=== PATIENT | female | born 1955 | race Caucasian/White ===

== ENCOUNTER 2018-07-29 07:07 | Inpatient (IN) | payer MEDICARE, BC ==
[2018-07-29] MEDS ORDERED: Ondansetron INJ* 2 MG/ML VIAL IV ONE ×2 (07:31→11:43)
[2018-07-29] MEDS ORDERED: Morphine 4 MG/ML VIAL (1 ml) 4 MG/ML VIAL IV ONE ×2 (07:31→11:43)
[2018-07-29] MEDS ORDERED: NS 0.9% 1000 ML** 1,000 ML IV ONE (07:31)
--- NOTE | 2018-07-29 07:32 | ED ---
Abdominal Pain/Female - HPI Summary HPI Summary: This pt is a 62 y/o female, accompanied by Martínez, [facility]/ o left lower abd pain since yesterday. Pt reports her pain seems to be a bit on the left upper abd area as well. She describes her abd pain as steady, constant and rates it 8 to 10 out of 10 in severity. Additionally she notes bloody stools , diarrhea describes was watery and loose stools, diaphoresis. Pt describes blood on the outside part of the stools. Denies fever, weakness, dizziness, nausea, vomiting. Pt denies any recent travel out of the country and sicks contacts. She denies recent antibiotics. Pt also denies chills, erythema of eyes, sore throat, chest pain, SOB, cough, dysuria, hematuria, myalgia, edema, rash. PMHx: lyme disease, spinal fusions x4. Her PCP is Dr. Owusu. - History of Current Complaint Chief Complaint: EDAbdPain Stated Complaint: EXTREME ABD PAIN/BLOOD IN STOOL/HOT FLASHES PER PT Hx Obtained From: Patient Onset/Duration: Lasting Days - 1, Still Present Timing: Days - 1 Severity Currently: Moderate Pain Intensity: 8 Pain Scale Used: 0-10 Numeric Location: Discrete At: LLQ Radiates: No Character: Other: - steady and constant Aggravating Factor(s): Nothing Alleviating Factor(s): Nothing Associated Signs and Symptoms: Positive: Diaphoresis, Blood in Stool, Diarrhea. Negative: Fever, Cough, Chest Pain, Dizzy, Urinary Symptoms, Nausea, Vomiting Allergies/Adverse Reactions: Allergies Allergy/AdvReac Type Severity Reaction Status Date / Time No Known Allergies Allergy Verified 07/29/18 07:40 Home Medications: Home Medications tiZANidine TAB* [Zanaflex TAB*] 4 mg PO DAILY 07/29/18 [History Confirmed ] PMH/Surg Hx/FS Hx/Imm Hx Endocrine/Hematology History: Reports: Hx Thyroid Disease - HYPOTHYROIDISM Respiratory History: Reports: Hx Sleep Apnea - NO CPAP OR BIPAP GI History: Reports: Hx Gastroesophageal Reflux Disease - ACID REFLUX Musculoskeletal History: Reports: Hx Arthritis - LOWER BACK Sensory History: Denies: Hx Contacts or Glasses, Hx Hearing Aid Opthamlomology History: Denies: Hx Contacts or Glasses - Cancer History Hx Chemotherapy: No Hx Radiation Therapy: No - Surgical History Surgical History: Yes Surgery Procedure, Year, and Place: TUBAL 1986. Cervical fusions x4 Hx Anesthesia Reactions: Yes - NEED AWAKE INTUBATION - ESOPHAGUS PROBLEMS Infectious Disease History: No Infectious Disease History: Denies: Traveled Outside the [place] in Last 30 Days - Family History Known Family History: Negative: Cardiac Disease - Social History Alcohol Use: Occasionally Substance Use Type: Reports: None Hx Tobacco Use: No Smoking Status (MU): Former Smoker Length of Time of Smoking/Using Tobacco: 22 YEARS APPROX. Have You Smoked in the Last Year: No Review of Systems Positive: Skin Diaphoresis. Negative: Fever, Chills Negative: Erythema Negative: Sore Throat Negative: Chest Pain Negative: Shortness Of Breath, Cough Gastrointestinal: Other - POS: bloody stools Positive: Abdominal Pain, Diarrhea. Negative: Vomiting, Nausea Negative: dysuria, hematuria Negative: Myalgia, Edema Negative: Rash Neurological: Other - NEGATIVE: dizziness Negative: Weakness All Other Systems Reviewed And Are Negative: Yes Physical Exam - Summary Physical Exam Summary: Constitutional: Well-developed, Well-nourished, Alert. (-) Distressed Skin: Warm, Dry HENT: Normocephalic; Atraumatic Eyes: Conjunctiva normal Neck: Musculoskeletal ROM normal neck. (-) JVD, (-) Stridor, (-) Tracheal deviation Cardio: Rhythm regular, rate normal, Heart sounds normal; Intact distal pulses; The pedal pulses are 2+ and symmetric. Radial pulses are 2+ and symmetric. (-) Murmur Pulmonary/Chest wall: Effort normal. (-) Respiratory distress, (-) Wheezes, (-) Rales Abd: Soft, (+) Exquisite LLQ tenderness. (-) Distension, (-) Guarding, (-) Rebound Musculoskeletal: (-) Edema Lymph: (-) Cervical adenopathy Neuro: Alert, Oriented x3 Psych: Mood and affect Normal Triage Information Reviewed: Yes Vital Signs On Initial Exam: Initial Vitals Temp Pulse Resp BP Pulse Ox 99.5 F 118 16 108/66 97 07/29/18 07:09 07/29/18 07:09 07/29/18 07:09 07/29/18 07:09 07/29/18 07:09 Vital Signs Reviewed: Yes Diagnostics - Vital Signs Vital Signs Temp Pulse Resp BP Pulse Ox 07/29/18 07:09 99.5 F 118 16 108/66 97 - Laboratory Result Diagrams: 07/29/18 07:35 07/29/18 07:35 Lab Statement: Any lab studies that have been ordered have been reviewed, and results considered in the medical decision making process. - CT Abdomen/Pelvis CT CT Interpretation Completed By: Radiologist Summary of CT Findings: IMPRESSION: 1. Circumferential thickening of the wall of the transverse colon most consistent with colitis. There is an outpouching along the superior wall suggestive of an ulcer or diverticulum. Recommend follow -up colonoscopy to exclude an underlying malignant lesion. 2. Small amount of free intraperitoneal fluid. 3. 2.7 CM nodular density in the right breast. Recommend follow-up mammogram for further evaluation. Dr. Hays has reviewed this report. Re-Evaluation - Re-Evaluation First Eval Re-Evaluation Time: 10:56 Comment: Reviewed lab results with pt. We are waiting for the CT results. Second Eval Re-Evaluation Time: 11:43 Change: Worse Comment: Pt reports pain. Will order pain medication. Third Eval Re-Evaluation Time: 12:19 Comment: Updated the family with results and clarified. Abdominal Pain Fem Course/Dx - Course Course Of Treatment: Pt is a 62 y/o female, accompanied by Martínez, [facility] c/o left lower abd pain since yesterday. Pt reports her pain seems to be a bit on the left upper abd area as well. She describes her abd pain as steady, constant and rates it 8 to 10 out of 10 in severity. Additionally she notes bloody stools, diarrhea describes was watery and loose stools, diaphoresis. Labs remarkable for WBC of 26.3, anion gap of 15, BUN of 28, creatinine of 1.02, glucose of 120, lactic acid of 3.1, CRP of 341, lipase < 10. Abd/pelvis CT shows 1. Circumferential thickening of the wall of the transverse colon most consistent with colitis. There is an outpouching along the superior wall suggestive of an ulcer or diverticulum. Recommend follow-up colonoscopy to exclude an underlying malignant lesion. 2. Small amount of free intraperitoneal fluid. 3. 2.7 CM nodular density in the right breast. Recommend follow-up mammogram for further evaluation. In the ED course the pt was given IV fluids, Zofran, morphine, flagyl, ciprofloxacin. Given her elevated white blood cell count, acute presentation, and significant pain I favored diverticulitis as a diagnossis. However, I cannot rule out any other etiology. Discussed the case with Dr. Curtis, hospitalist, who accepted the pt for admission. Also discussed with Dr. Huang, surgeon, who had evaluated the pt and recommends surgery and GI consult. - Diagnoses Provider Diagnoses: Colitis, Rectal bleeding - Provider Notifications Discussed Care Of Patient With: Kayla Curtis - hospitalist Time Discussed With Above Provider: 11:57 Instructed by Provider To: Other - Discussed the case with Dr. Curtis, hospitalist, who accepted the pt for admission. [12:13] Discussed with Dr. Huang , surgeon, who had evaluated the pt and recommends surgery and GI consult. - Critical Care Time Critical Care Time: 30-74 min - 45 minutes Discharge - Sign-Out/Discharge Documenting (check all that apply): Patient Departure - Admit to [facility] Patient Received Moderate/Deep Sedation with Procedure: No - Discharge Plan Condition: Stable Disposition: ADMITTED TO [facility] Referrals: Hair Owusu MD [Primary Care Provider] - - Attestation Statements Document Initiated by Scribe: Yes Documenting Scribe: Kayla Escobedo Provider For Whom Scribe is Documenting (Include Credential): Antonio Hays MD Scribe Attestation: I, Kayla Escobedo, scribed for Antonio Hays MD on 07/29/18 at 1203. Status of Scribe Document: Viewed
[2018-07-29 07:42] LABS: Hematocrit 38 % (35-47); Hemoglobin 13.1 g/dL (12.0-16.0); Mean Corpuscular HGB Conc 34 g/dL (31-36); Mean Corpuscular Hemoglobin 31 pg (27-31); Mean Corpuscular Volume 91 fL (80-97); Mean Platelet Volume 7.8 fL (7.4-10.4); Platelet Count 286 10^3/uL (150-450); Red Blood Count 4.19 10^6 /uL (3.70-4.87); Red Cell Distribution Width 14 % (10-15); White Blood Count 26.3 10^3/uL (3.5-10.8)
[2018-07-29 07:48] LABS: ABS Lymphocytes 1.4 10^3/ul (1.0-4.8); ABS Monocytes 0.7 10^3/ul (0-0.8); ABS Neutrophils 24.2 10^3/ul (1.5-7.7); Lymphocyte % 5.3 %
[2018-07-29 08:07] LABS: Urine Appearance Clear; Urine Bacteria Absent (Absent); Urine Bilirubin Negative (Negative); Urine Blood 2+ (Negative); Urine Color Amber; Urine Glucose Negative (Negative); Urine Ketones Negative (Negative); Urine Nitrite Negative (Negative); Urine Protein 2+(100 mg/dL) (Negative); Urine Red Blood Cell 3+(>10/hpf) (Absent); Urine Specific Gravity 1.033 (1.010-1.030); Urine Squamous Epithelial Cell Present (Absent); Urine Transitional Epithelial Present (Absent); Urine Urobilinogen Negative (Negative); Urine White Blood Cell 2+(11-20/hpf) (Absent)
[2018-07-29] MEDS ORDERED: NS 0.9% IV ONE (08:28)
[2018-07-29] MEDS ORDERED: Ciprofloxacin 400MG IVPREMIX(* 400 MG/200 ML BAG IVPB ONE (08:29)
[2018-07-29 09:08] LABS: ALT 15 U/L (7-52); AST 19 U/L (13-39); Albumin 3.9 g/dL (3.2-5.2); Albumin/Globulin Ratio 1.2 (1-3); Alkaline Phosphatase 50 U/L (34-104); Anion Gap 15 mmol/L (2-11); BUN/Creatinine Ratio 27.5 (8-20); Blood Urea Nitrogen 28 mg/dL (6-24); C Reactive Protein 341.36 mg/L (<8.01); CO2 Carbon Dioxide 21 mmol/L (22-32); Calcium 9.2 mg/dL (8.6-10.3); Chloride 99 mmol/L (101-111); EGFR African American 66.4 (>60); EGFR Non-African American 54.9 (>60); Globulin 3.3 g/dL (2-4); Glucose 120 mg/dL (70-100); Potassium 3.8 mmol/L (3.5-5.0); Sodium 135 mmol/L (135-145); Total Protein 7.2 g/dL (6.4-8.9)
[2018-07-29] MEDS ORDERED: Iodixanol* (CONTRAST) 320 MG/ML 100 ML SDV IV ONE (10:25)
[2018-07-29] MEDS ORDERED: metroNIDAZOLE IV 500 MG/100ML* 500 MG/100 ML BAG IVPB ONE (10:54)
[2018-07-29] MEDS ORDERED: D5W 1/2 NS KCl 20 Meq 1000 ML* 1,000 ML IV SCH (14:00)
[2018-07-29] MEDS: Acetaminophen TAB* 325 MG PO PRN (16:14)
[2018-07-29] MEDS: Morphine INJ* 2 MG/ML 1 ML SYRINGE (TWO MG - NEW SYRINGE VERSION) IV PRN ×2 (17:23→21:27)
[2018-07-29] MEDS: metroNIDAZOLE IV 500 MG/100ML* 500 MG/100 ML BAG IVPB SCH (17:29)
--- NOTE | 2018-07-29 20:38 | HP ---
HISTORY AND PHYSICAL: DATE OF ADMISSION: 07/29/18 PRIMARY CARE PHYSICIAN: Hair Owusu MD HEALTHCARE PROXY: Her , Irma. CODE STATUS: Full. CHIEF COMPLAINT: One day severe left lower quadrant pain. HISTORY OF PRESENT ILLNESS: Ms. Kumar is a 62-year-old woman with hypothyroidism and cervical pain s/p spinal fusions who is presenting with 1 day of severe left lower quadrant pain. She reports she was in her usual state of health until yesterday morning when severe left lower quadrant pain awoke her from sleep. She thinks that has occasionally radiated to the right side and rates this pain 8/10 and constant. She states this was associated with 1 episode of bloody diarrhea last night, mostly with loose stool and some amounts of blood in the stool but not a lot. She also reports a severely decreased appetite but no nausea or vomiting. She also report chills and frequent sweating but has had no fever. She denies shortness of breath, chest pain, or dysuria. A complete 10-point review of systems was performed and pertinent positives and negatives are listed. In the ER, the patient was noted to have a white blood cell count of 26% with slightly elevated creatinine and lactate of 3.[address] scan was significant for colitis. The patient was initiated on IV fluids, Zofran, IV morphine, Flagyl, and ciprofloxacin and asked to be admitted to Medicine for bowel rest with IV antibiotics. Surgical consult, Dr. Claude Huang also saw the patient in the emergency room who recommended GI consult as well with continued bowel rest and blood pressure management. PAST MEDICAL HISTORY: 1. Neck pain with multiple cervical spinal fusions. 2. Hypothyroidism. 3. Lyme disease. 4. Exploratory laparotomy with appendectomy in 1975. HOME MEDICATIONS: 1. Tizanidine 4 mg daily as needed for muscle spasm. 2. Ambien 10 mg nightly as needed for sleep. 3. Levothyroxine 75 mcg daily. ALLERGIES: No known drug allergies. FAMILY HISTORY: Her father had colon cancer at the age of 73. SOCIAL HISTORY: The patient lives with her , Irma. She quit smoking in 1997 with a [id number] history before that. She reports rare alcohol use and no other illicit drug use. The patient has 3 children who are closely involved. PHYSICAL EXAMINATION GENERAL: She is a well-appearing woman in no acute distress who is alert and interactive and answers questions appropriately. VITAL SIGNS: T-max 100.0, pulse rate low 100s, blood pressure 99/59, respiratory rate 16, oxygen saturation 95% on room air. HEENT: OP clear. Moist mucous membranes. NECK: Supple. No JVD. LUNGS: Clear to auscultation bilaterally. HEART: Regular rate and rhythm. No murmurs, gallops, or rubs. ABDOMEN: Soft, nontender, nondistended. Decreased bowel sounds. No guarding but positive for significant rebound tenderness. EXTREMITIES: Warm and well perfused. No evidence of edema. NEUROLOGIC: No focal deficits. DIAGNOSTIC STUDIES: WBC 26 with 18% bands. BMP significant for chloride 99, bicarb 21, BUN/creatinine 28/1.02. Lactic acid 3.1, decreased to 1.4 after fluid bolus. CRP 341. UA with 2+ protein, 2+ blood, trace LE, 2+ wbc's, 3+ rbc's. CT abdomen and pelvis with contrast showing circumferential thickening of the wall of the transverse colon most consistent with colitis. There is an outpouching along the superior wall suggestive of an ulcer or diverticulum. Small amount of free intraperitoneal fluid. A 2.7 cm nodular density in the right breast. ASSESSMENT AND PLAN: Ms. Kumar is a 62-year-old generally healthy woman who is presenting with acute onset of left lower quadrant abdominal pain associated with 1 episode of bloody diarrhea who is found with severe sepsis and colitis on imaging. 1. Colitis. Appreciate Surgery and GI consults. Continue the patient on IV ciprofloxacin and metronidazole with IV pain control and maintenance fluids. Stool studies also ordered including giardia, C. diff, stools cultures, and O and P. Surgery recommending bowel rest at this time. 2. Hypothyroidism. Continue home levothyroxine 70 mcg daily. 3. Neck pain. Continue home tizanidine 4 mg daily as needed for muscle spasm. 4. DVT prophylaxis: Okay to start Lovenox daily. 5. Code status: Full code. TIME SPENT: Approximately 60 minutes was spent on admission of this patient, more than half of which was spent at bedside for interview and exam. [id number] #: [id number] [facility]
[2018-07-29] MEDS: Enoxaparin(*) 40 MG/0.4 ML SYR SUBCUT SCH (21:27)
[2018-07-29] MEDS: Ciprofloxacin 400MG IVPREMIX(* 400 MG/200 ML BAG IVPB SCH (21:34)
[2018-07-29] MEDS ORDERED: Lactated Ringers 1000 ML Bag* 1,000 ML IV SCH (22:00)
[2018-07-29] MEDS: Cyclobenzaprine TAB* 10 MG PO PRN (22:04)
--- NOTE | 2018-07-29 22:37 | CONS ---
CC: Primary Care Doctor; [facility]. * SURGICAL CONSULTATION REPORT: DATE OF CONSULT: 07/29/18 HISTORY OF PRESENT ILLNESS: Ms. Kumar is a 62-year-old female who presented to the emergency room today with acute onset of severe abdominal pain yesterday that worsened through the night and she presented to the emergency room after it had not resolved. I reviewed her chart and discussed the case with the emergency room doctor and saw the patient while she is in the emergency room. The patient describes that she was in her normal good health on Sunday night, had a meal and normal bowel movements and when she woke up on Sunday morning, she had severe abdominal pain. Pain was mostly in the mid abdomen and became more diffuse. She had decreased appetite and did not eat anything yesterday. Patient denied any previous similar symptoms. Pain was minimally relieved with rest, if any, and then narcotics in the emergency room. Aggravated with movement. Patient had no nausea. She denied any fevers but did endorse experiencing chills. She also described bloody stools as well yesterday. PAST MEDICAL HISTORY: 1. Hypothyroidism. 2. History of Lyme disease remotely. 3. Back pain. PAST SURGICAL HISTORY: 1. Cervical spinal fusion. 2. Appendectomy in 1975. HOME MEDICATIONS: List reviewed. ALLERGIES: No known drug allergies. SOCIAL HISTORY: She is a nonsmoker, quitting in 1997. She lives with her . She rarely drinks alcohol, although she did drink Sunday and Sunday. FAMILY HISTORY: Significant for father who of colon cancer. REVIEW OF SYSTEMS: Patient denies any significant weight loss or weight gain. No cardiovascular disease. No cerebrovascular disease. Abdominal complaints as described above. No dysuria. History of colonoscopies that according to the patient have been within normal limits. She has been getting them routinely due to her strong family history. No endocrine disorders other than hypothyroidism. No bleeding or clotting disorders. Blood per rectum as described above. No claudication type symptoms. PHYSICAL EXAMINATION: Temperature 99.5; tachycardic at 118 on arrival, now 104 ; blood pressures in the 100s. She is alert and oriented x3. She is in mild distress. Sitting in stretcher with family around. She answers questions appropriately. Head, ears, eyes, and throat: Normocephalic, atraumatic. Sclerae anicteric. Mucous membranes mucous are dry. Neck: No lymphadenopathy. Abdomen is soft, nondistended, tender diffusely with a positive and voluntary guarding and tenderness on percussion in the mid abdomen and upper abdomen. No overlying skin changes. Surgical incision in the lower abdomen. Rectal exam was not performed. Guaiac had been performed and is positive for blood. Extremities shows no pitting edema. DIAGNOSTIC STUDIES/LAB DATA: Labs reviewed show elevated white blood count of 26 with a left shift and bands of 18. Lactic acid on arrival 3.1 and repeat at 1.4. Patient has a creatinine of 1 where her baseline is 0.75. Normal lipase. Normal LFTs. Elevated CRP. Urinalysis reviewed. CAT scan of the abdomen and pelvis performed. The images as well as the report reviewed, which showed significant transmural inflammation at the transverse colon, circumferential thickening with an outpouching that could be suggesting perforation versus diverticulum. Small amount of free peritoneal fluid. IMPRESSION: A 62-year-old female who otherwise was in normal health until yesterday when she suffered persistent abdominal pain that appears on imaging to be consistent with colitis of unclear etiology. At this point, possible infectious, possible inflammatory, possibly secondary to cancer or any perforation. My concern is the patient has significant abdominal pain and may require colectomy. I discussed this with her, but recommend nonoperative interventions of IV fluids, NPO status and antibiotics. We will follow patient closely with abdominal exam and follow her labs in the morning. We will look for changes in improvement with regard to her creatinine levels and lactate level and with regard to white blood cell count. A consultation of the patient should be made to Gastroenterology. We should also get her endoscopy reports from outside institution. I did spend time discussing the case with ER doctors as well as the medical team as well as the patient and her family my concern with her presenting exam. Her questions were answered. [id number]/CPS #: [id number] [facility]
[2018-07-30] MEDS: metroNIDAZOLE IV 500 MG/100ML* 500 MG/100 ML BAG IVPB SCH ×3 (02:34→19:31)
[2018-07-30] MEDS: Acetaminophen TAB* 325 MG PO PRN ×2 (02:36→20:56)
[2018-07-30] MEDS: Morphine INJ* 2 MG/ML 1 ML SYRINGE (TWO MG - NEW SYRINGE VERSION) IV PRN ×3 (02:37→21:39)
[2018-07-30] MEDS: Levothyroxine TAB* 75 MCG TAB PO SCH (05:52)
[2018-07-30 06:18] LABS: ABS Lymphocytes 1.1 10^3/ul (1.0-4.8); ABS Monocytes 0.5 10^3/ul (0-0.8); ABS Neutrophils 15.3 10^3/ul (1.5-7.7); Eosinophil % 0.2 %; Hematocrit 29 % (35-47); Lymphocyte % 6.8 %; Mean Corpuscular HGB Conc 35 g/dL (31-36); Mean Corpuscular Hemoglobin 32 pg (27-31); Mean Corpuscular Volume 92 fL (80-97); Mean Platelet Volume 7.8 fL (7.4-10.4); Platelet Count 215 10^3/uL (150-450); Red Blood Count 3.18 10^6 /uL (3.70-4.87); Red Cell Distribution Width 14 % (10-15)
[2018-07-30 06:21] LABS: INR 1.23 (0.82-1.09)
[2018-07-30 06:41] LABS: BUN/Creatinine Ratio 22.4 (8-20); EGFR African American 127.5 (>60); EGFR Non-African American 105.3 (>60); Magnesium 1.9 mg/dL (1.9-2.7); Potassium 3.4 mmol/L (3.5-5.0)
[2018-07-30] MEDS: Lactated Ringers 1000 ML Bag* 1,000 ML IV SCH ×4 (08:00→19:31)
[2018-07-30 09:16] LABS: TSH (Thyroid Stimulating Horm) 1.3 mcIU/mL (0.34-5.60)
[2018-07-30] MEDS: Ciprofloxacin 400MG IVPREMIX(* 400 MG/200 ML BAG IVPB SCH ×2 (10:29→21:43)
--- NOTE | 2018-07-30 12:02 | PN ---
Progress Note - Progress Note SOAP: Subjective: [] Objective: [] Assessment: [] Plan: []
--- NOTE | 2018-07-30 14:25 | PN ---
Progress Note - Progress Note Date of Service: 07/30/18 SOAP: Subjective: Patient seen and examined earlier today. Patient states that her pain is unchanged. It is mid abdomen. Is nonradiating. It is relieved with narcotics. Patient denies any flatus. She did have bowel movement earlier today. No nausea. No appetite. Objective: Temp Pulse Resp BP Pulse Ox 98.7 F 95 18 86/60 97 07/30/18 11:30 07/30/18 11:30 07/30/18 13:06 07/30/18 11:35 07/30/18 11:30 Intake & Output 07/29/18 07/30/18 07/30/18 22:59 06:59 14:59 Intake Total 80 1728 Output Total 600 Balance 80 1128 fair urine output. Alert and oriented 3, no apparent distress Abdomen: Soft, nondistended, tender diffusely with focal peritoneal signs periumbilically. No hernias or masses. Guaiac-positive. Labs reviewed. Assessment: Colitis with blood per rectum. Differential diagnosis is ischemic versus ulcerative. Less likely infectious with C. difficile negative results at this time. Low blood pressure without additional signs of sepsis and improving white blood count Plan: Continue IV fluids Antibiotics. Serial abdominal exams and watchful waiting.
[2018-07-30] MEDS ORDERED: fentaNYL* 50 MCG/ML 2 ML VIAL (100 MCG VIAL) ONE (16:52)
[2018-07-30] MEDS ORDERED: Midazolam* 1 MG/ML 10 ML VIAL (10 MG) ONE (16:53)
--- NOTE | 2018-07-30 17:06 | PN ---
Subjective Date of Service: 07/30/18 Interval History: Received call this morning from nurse that patient's systolic pressure has been in the low 90s and below and 2 liters of LR was ordered by Dr Hooker. On assessment by this blog writer patient reports pain is unchanged from admission. She reports is in throughout her abd but will change in location to where it is concentrated for example it was worse in LLQ yesterday and today RLQ. Reports she is having one bowel movement a day that is diarrhea. Denies fever, chills, chest pain, sob. Objective Active Medications: Acetaminophen (Tylenol Tab*) 975 mg PO Q8H PRN PRN Reason: FEVER/PAIN Last Admin: 07/30/18 02:36 Dose: 975 mg Cyclobenzaprine HCl (Flexeril Tab*) 5 mg PO BID PRN PRN Reason: MUSCLE SPASMS Last Admin: 07/29/18 22:04 Dose: 5 mg Enoxaparin Sodium (Lovenox(*)) 40 mg SUBCUT BEDTIME [facility] Last Admin: 07/29/18 21:27 Dose: 40 mg Ciprofloxacin/Dextrose (Cipro 400 Mg Ivpremix(*)) 400 mg in 200 mls @ 200 mls/ hr IVPB Q12H PERRI; Protocol Last Admin: 07/30/18 10:29 Dose: 200 mls/hr Metronidazole/Sodium Chloride (Flagyl 500 Mg Ivpb*) 500 mg in 100 mls @ 100 mls /hr IVPB Q8H PERRI Last Admin: 07/30/18 13:06 Dose: 100 mls/hr Lactated Ringer's (Lactated Ringers 1000 Ml Bag*) 1,000 mls @ 150 mls/hr IV PER RATE [facility] Last Admin: 07/30/18 10:31 Dose: 150 mls/hr Levothyroxine Sodium (Synthroid Tab*) 75 mcg PO 0600 [facility] Last Admin: 07/30/18 05:52 Dose: Not Given Morphine Sulfate (Morphine Inj (Syringe))*) 2 mg IV Q4H PRN PRN Reason: PAIN - MILD Last Admin: 07/30/18 10:29 Dose: 2 mg Ondansetron HCl (Zofran Inj*) 4 mg IV Q6H PRN PRN Reason: NAUSEA Vital Signs - 8 hr 07/30/18 07/30/18 07/30/18 09:20 10:15 10:29 Temperature Pulse Rate Respiratory 18 18 Rate Blood Pressure 90/50 90/52 (mmHg) O2 Sat by Pulse Oximetry 07/30/18 07/30/18 07/30/18 11:30 11:35 13:06 Temperature 98.7 F Pulse Rate 95 Respiratory 18 18 Rate Blood Pressure 75/40 86/60 (mmHg) O2 Sat by Pulse 97 Oximetry 07/30/18 15:01 Temperature 98.4 F Pulse Rate 98 Respiratory 20 Rate Blood Pressure 95/39 (mmHg) O2 Sat by Pulse 94 Oximetry Oxygen Devices in Use Now: None Appearance: NAD Eyes: No Scleral Icterus Ears/Nose/Mouth/Throat: Clear Oropharnyx, Mucous Membranes Moist Neck: NL Appearance and Movements; NL JVP Respiratory: Symmetrical Chest Expansion and Respiratory Effort, Clear to Auscultation Cardiovascular: NL Sounds; No Murmurs; No JVD, RRR, No Edema Abdominal: - - Soft. Tender throughout, but worse in RLQ. BS + Lymphatic: No Cervical Adenopathy Extremities: No Clubbing, Cyanosis Skin: No Rash or Ulcers Neurological: Alert and Oriented x 3 Nutrition: - - NPO Result Diagrams: 07/30/18 05:47 07/30/18 05:47 Additional Lab and Data: Laboratory Results - last 24 hr 07/30/18 07/30/18 07/30/18 05:47 05:47 05:47 WBC 17.0 H RBC 3.18 L Hgb 10.0 L Hct 29 L MCV 92 MCH 32 H MCHC 35 RDW 14 Plt Count 215 MPV 7.8 Neut % (Auto) 90.2 Lymph % (Auto) 6.8 [place] % (Auto) 2.7 Eos % (Auto) 0.2 Baso % (Auto) 0.1 Absolute Neuts (auto) 15.3 H Absolute Lymphs (auto) 1.1 Absolute Monos (auto) 0.5 Absolute Eos (auto) 0.0 Absolute Basos (auto) 0.0 Absolute Nucleated RBC 0.0 Nucleated RBC % 0.0 INR (Anticoag Therapy) 1.23 H Sodium 137 Potassium 3.4 L Chloride 108 Carbon Dioxide 26 Anion Gap 3 BUN 13 Creatinine 0.58 Est GFR ( Amer) 127.5 Est GFR (Non-Af Amer) 105.3 BUN/Creatinine Ratio 22.4 H Glucose 99 Calcium 8.0 L Magnesium 1.9 TSH 1.30 Microbiology and Other Data: Microbiology 07/29/18 07:55 Urine Urine Culture - Final No Growth (<1,000 CFU/mL) 07/29/18 18:32 Stool Escherichia coli 0157 Culture - Preliminary No E.coli 0157 Isolated 07/29/18 18:32 Stool Stool Gross Appearance - Final 07/29/18 18:32 Stool Stool Occult Blood (MIKHAIL) - Final 07/29/18 18:32 Stool Stool Gross Appearance - Final 07/29/18 18:32 Stool C. difficile DNA Amplification - Final 027 Presumptive NEGATIVE Toxigenic C.diff NEGATIVE Assess/Plan/Problems-Billing Assessment: 62 yr old with pmh of hypothyroid and lyme disease who presented to ED with abd pain and bloody stool - Patient Problems (1) Colitis Comment: - Continues to have abd pain with no change since admission - Cont NPO, IVF, IV pain medication, Abx - Surgery and GI consulting (2) Diarrhea Comment: - 1 BM a day that is diarrhea. - Negative C Diff - Culture and Shiga pending - Positive for blood (3) Leukocytosis Comment: - Improving - No fevers noted in past 24 hrs - Cont Cipro and Flagyl (4) Hypotension Comment: - Suspected to be secondary to pain medication and dehydration. - Improved with IV bolus - Cont IVF as higher rate - Cont to monitor (5) Breast mass Comment: - Incidental 2.7 cm nodular density in right breast noted on CT - Will need follow up mammogram as outpatient (6) Hypothyroid Comment: - TSH normal - Cont Levothyroxine as same dose (7) DVT prophylaxis Comment: - Lovenox daily Status and Disposition: Inpatient. Discharge home when medically stable Attending: Lazaro Taylor
[2018-07-30] MEDS: Enoxaparin(*) 40 MG/0.4 ML SYR SUBCUT SCH (21:03)
--- NOTE | 2018-07-30 22:18 | PRO ---
DATE: 07/30/18 - Inpatient, room 413-02 REFERRING PHYSICIAN: Hair Owusu.* PROCEDURE: Limited colonoscopy to mid transverse colon and biopsy of edematous exudate covered swollen mucosa, close to occluding. INDICATION: This 62-year-old woman developed abdominal pain early Sunday. She had profuse diarrhea. It persisted. She came to the emergency room on Sunday. There was blood in the stool. Her white count was elevated. CT scan showed a thickened transverse colon. Today, the loose stool has slowed, no longer is obviously bloody and her white count has considerably fallen. She has remained afebrile. She has bowel sounds. Discussion was held about a limited unprepped colonoscopy. Informed consent was obtained. Risks and benefits were discussed. ENDOSCOPIST: Dr. Valverde. MEDICATIONS: Midazolam 7, fentanyl 75. FINDINGS: She is a healthy-appearing woman with a mildly rounded abdomen symmetrically. Bowel sounds are present with normal timbre. She is diffusely tender though without guarding. She is positioned left side down and moderate sedation induced. Rectal is normal. Initial views show liquid brown stool and normal mucosa. No blood seen. The rectum was normal as was the rectosigmoid, sigmoid, descending and estimated splenic flexure. In the estimated mid transverse, there were severely swollen folds abruptly beginning and coming close to luminal occlusion. There were a few aphthoid erosions a couple of centimeters more distally. Biopsies were obtained from both the leading edge of the swollen folds and these aphthoid erosions as they were all in the same couple of centimeters. There is no active bleeding. Couple of diverticula had been seen in the sigmoid colon. The patient was tolerating this well, awake. The scope was withdrawn. All areas below splenic flexure were totally normal besides the diverticuli. IMPRESSION: 1. Minimal diverticulosis. 2. Focal colitis, transverse colon - suspect ischemia given this distribution. The patient does not have a known vasculopathy. Would obtain an echocardiogram. [id number]/[facility] #: [id number] [facility]
[2018-07-31] MEDS: metroNIDAZOLE IV 500 MG/100ML* 500 MG/100 ML BAG IVPB SCH ×3 (02:25→18:11)
[2018-07-31] MEDS: Lactated Ringers 1000 ML Bag* 1,000 ML IV SCH ×4 (03:38→23:37)
[2018-07-31] MEDS: Levothyroxine TAB* 75 MCG TAB PO SCH (05:10)
[2018-07-31] MEDS: Acetaminophen TAB* 325 MG PO PRN ×3 (05:14→23:40)
[2018-07-31 06:08] LABS: ABS Eosinophils 0.1 10^3/ul (0-0.6); ABS Lymphocytes 0.7 10^3/ul (1.0-4.8); ABS Monocytes 0.5 10^3/ul (0-0.8); ABS Neutrophils 8.7 10^3/ul (1.5-7.7); Eosinophil % 0.5 %; Hematocrit 28 % (35-47); Hemoglobin 9.6 g/dL (12.0-16.0); Lymphocyte % 7.3 %; Mean Corpuscular HGB Conc 35 g/dL (31-36); Mean Corpuscular Hemoglobin 32 pg (27-31); Mean Corpuscular Volume 92 fL (80-97); Mean Platelet Volume 7.8 fL (7.4-10.4); Platelet Count 194 10^3/uL (150-450); Red Blood Count 3.05 10^6 /uL (3.70-4.87); Red Cell Distribution Width 14 % (10-15)
[2018-07-31 06:25] LABS: BUN/Creatinine Ratio 12.7 (8-20); EGFR African American 135.5 (>60); Potassium 3.2 mmol/L (3.5-5.0)
[2018-07-31 08:44] LABS: Magnesium 1.7 mg/dL (1.9-2.7)
--- NOTE | 2018-07-31 09:04 | PN ---
Subjective Date of Service: 07/31/18 Interval History: Resting in bed with at beside. and patient aware of results of scope as they were reviewed in detail by Dr Wilson (GI). Patient reports pain has slightly improved as it is a "6" down from an "8". Reports one BM today that was rust colored. Reports she has nausea today which is new, but no vomiting. Objective Active Medications: Acetaminophen (Tylenol Tab*) 975 mg PO Q8H PRN PRN Reason: FEVER/PAIN Last Admin: 07/31/18 05:14 Dose: 975 mg Cyclobenzaprine HCl (Flexeril Tab*) 5 mg PO BID PRN PRN Reason: MUSCLE SPASMS Last Admin: 07/29/18 22:04 Dose: 5 mg Enoxaparin Sodium (Lovenox(*)) 40 mg SUBCUT BEDTIME PERRI Last Admin: 07/30/18 21:03 Dose: 40 mg Ciprofloxacin/Dextrose (Cipro 400 Mg Ivpremix(*)) 400 mg in 200 mls @ 200 mls/ hr IVPB Q12H [facility]; Protocol Last Admin: 07/30/18 21:43 Dose: 200 mls/hr Metronidazole/Sodium Chloride (Flagyl 500 Mg Ivpb*) 500 mg in 100 mls @ 100 mls /hr IVPB Q8H PERRI Last Admin: 07/31/18 02:25 Dose: 100 mls/hr Lactated Ringer's (Lactated Ringers 1000 Ml Bag*) 1,000 mls @ 150 mls/hr IV PER RATE [facility] Last Admin: 07/31/18 03:38 Dose: 150 mls/hr Potassium Chloride (Potassium Chloride 20 Meq/100 Ml Ivpremix*) 20 meq in 100 mls @ 50 mls/hr IV Q2H PERRI Stop: 07/31/18 12:59 Levothyroxine Sodium (Synthroid Tab*) 75 mcg PO 0600 PERRI Last Admin: 07/31/18 05:10 Dose: 75 mcg Morphine Sulfate (Morphine Inj (Syringe))*) 2 mg IV Q4H PRN PRN Reason: PAIN - MILD Last Admin: 07/30/18 21:39 Dose: 2 mg Ondansetron HCl (Zofran Inj*) 4 mg IV Q6H PRN PRN Reason: NAUSEA Vital Signs - 8 hr 0607/31/18 07/31/18 03:38 03:42 07:45 Temperature 97.9 F 98 F Pulse Rate 80 70 Respiratory 14 16 Rate Blood Pressure 87/48 90/56 85/53 (mmHg) O2 Sat by Pulse 94 94 Oximetry 07/31/18 07:58 Temperature Pulse Rate Respiratory Rate Blood Pressure 86/50 (mmHg) O2 Sat by Pulse Oximetry Oxygen Devices in Use Now: None Appearance: Comfortable, NAD Eyes: No Scleral Icterus Ears/Nose/Mouth/Throat: Clear Oropharnyx, Mucous Membranes Moist Neck: NL Appearance and Movements; NL JVP Respiratory: Symmetrical Chest Expansion and Respiratory Effort, Clear to Auscultation Cardiovascular: NL Sounds; No Murmurs; No JVD, RRR, No Edema Abdominal: - - Abd soft. Tender through with increase tenderness in bilateral lower quads. BS +. Lymphatic: No Cervical Adenopathy Extremities: No Clubbing, Cyanosis Skin: No Rash or Ulcers Neurological: Alert and Oriented x 3 Nutrition: - - NPO Result Diagrams: 07/31/18 05:28 07/31/18 05:28 Additional Lab and Data: Laboratory Results - last 24 hr 07/31/18 07/31/18 05:28 05:28 WBC 10.0 RBC 3.05 L Hgb 9.6 L Hct 28 L MCV 92 MCH 32 H MCHC 35 RDW 14 Plt Count 194 MPV 7.8 Neut % (Auto) 86.8 Lymph % (Auto) 7.3 [place] % (Auto) 5.2 Eos % (Auto) 0.5 Baso % (Auto) 0.2 Absolute Neuts (auto) 8.7 H Absolute Lymphs (auto) 0.7 L Absolute Monos (auto) 0.5 Absolute Eos (auto) 0.1 Absolute Basos (auto) 0.0 Absolute Nucleated RBC 0.0 Nucleated RBC % 0.0 Sodium 139 Potassium 3.2 L Chloride 108 Carbon Dioxide 27 Anion Gap 4 BUN 7 Creatinine 0.55 Est GFR ( Amer) 135.5 Est GFR (Non-Af Amer) 112.0 BUN/Creatinine Ratio 12.7 Glucose 92 Calcium 8.0 L Magnesium 1.7 L Lactate Dehydrogenase 118 L Microbiology and Other Data: Microbiology 07/29/18 21:01 Stool Cryptosporidium/Giardia - Final Neg Cryptosporidium/Giardia 06/17/19 18:32 Stool Escherichia coli 0157 Culture - Final 07/29/18 18:32 Stool Stool Culture - Final 07/29/18 18:32 Stool Stool Gross Appearance - Final 07/29/18 18:32 Stool Shiga Toxin I & II - Final 07/29/18 18:32 Stool Stool Occult Blood (MIKHAIL) - Final 07/29/18 07:55 Urine Urine Culture - Final No Growth (<1,000 CFU/mL) 07/29/18 18:32 Stool Stool Gross Appearance - Final 07/29/18 18:32 Stool C. difficile DNA Amplification - Final 027 Presumptive NEGATIVE Toxigenic C.diff NEGATIVE Assess/Plan/Problems-Billing Assessment: 62 yr old with pmh of hypothyroid and lyme disease who presented to ED with abd pain and bloody stool - Patient Problems (1) Colitis Comment: - Scope completed and possible ischemic colitis of transverse colon. Discussed with Dr Huang who recommends support care at this time. - Continues to have abd pain, but reports it is slightly improved today - Cont NPO, IVF, IV pain medication - Cont abx. Patient will need 7 to 10 days total. (2) Diarrhea Comment: - 1 BM a day that is diarrhea. - Negative C Diff - Culture negative - Positive for blood (3) Leukocytosis Comment: - Now wnl - No fevers noted - Cont Cipro and Flagyl for 7 to 10 days (4) Hypotension Comment: - Hypotensive again this morning, patient reports she runs "low", responded well to IV bolus. - Suspected to be secondary to pain medication and dehydration. - Asymptomatic - Cont IVF at higher rate - Cont to monitor (5) Breast mass Comment: - Incidental 2.7 cm nodular density in right breast noted on CT - Will need follow up mammogram as outpatient (6) Hypothyroid Comment: - TSH normal - Cont Levothyroxine as same dose (7) DVT prophylaxis Comment: - Lovenox daily Status and Disposition: Inpatient. Discharge home when medically stable Attending: Lazaro Taylor
[2018-07-31] MEDS: KCL 20 MEQ/100 ML IVPREMIX* 20 MEQ/100 ML BAG IV SCH ×2 (09:48→13:03)
[2018-07-31] MEDS: Ciprofloxacin 400MG IVPREMIX(* 400 MG/200 ML BAG IVPB SCH ×2 (09:48→21:17)
--- NOTE | 2018-07-31 10:02 | CONS ---
GASTROENTEROLOGY CONSULT: DATE OF CONSULT: 07/30 CONSULTING PHYSICIAN: Lazaro Taylor MD, Hair Owusu MD. REASON FOR CONSULT: Abrupt abdominal pain with bloody diarrhea and thickening of the transverse colon. HISTORY: This 62-year-old woman generally healthy though on disability because of neck pain status post several surgeries, generally does not have any gastrointestinal problems. She had been feeling her usual herself on Sunday07/27/18 and then awakened Sunday morning around 4:00 a.m. with extreme pain and diarrhea. She continued to have loose stools and noticed they were bloody through the day on 07/28/18. The persistence of pain seemed to be getting worse. She came to the emergency room on Sunday. White count was grossly elevated in the 20s. CT scan showed thickening of the transverse colon. She was admitted and placed on antibiotics. In the hospital, her bowels have decreased and are no longer bloody. She has been afebrile throughout. Her white count has fallen to 17. She has noticed some loose stools twice a day over the last month without any blood, fever, urgency, incontinence, or nocturnal stools. She is said to eat a very healthy diet. She has had colonoscopies in 2006 and 2011 in the [facility]. PAST MEDICAL HISTORY: 1. Chronic neck pain. 2. Status post several cervical spine surgeries. 3. Appendectomy - 1976 during exploratory laparotomy. 4. Lyme disease. 5. Hyperthyroidism. 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 She is . Her primary is Dr. Hair Owusu, although she has only had 1 visit there. She has 6 children. REVIEW OF SYSTEMS: There is no history of TIA, CVA, syncope, seizures, CO, valvular disease, hepatitis, renal stones, chest surgery, TB, skin conditions, or prior thromboembolic phenomena. PHYSICAL EXAM: She is a healthy appearing middle aged woman of average body build. HEENT exam is unremarkable apart from suture lines. There were no bruits. Her lungs are clear. Heart sounds are regular. Breast and pelvic exams are deferred. The abdomen is mildly rounded with normal bowel sounds and generally soft, although there is diffuse tenderness. Rectal is normal. DIAGNOSTIC STUDIES/LAB DATA: CT review - focal thickening of the transverse colon. No free air or fluid. IMPRESSION: Acute abdominal pain in the night and diarrhea that was bloody at onset with high WBC The timing of this is classic for ischemic colitis. She and her ate the same food and he has not been ill. The differential diagnosis and potential surgical management will be benefited by an endoscopic procedure. She is, in a sense, already prepped by the diarrhea. [id number]/[facility] #: [id number] MTDD
[2018-07-31] MEDS: Ondansetron INJ* 2 MG/ML VIAL IV PRN ×2 (10:40→22:42)
[2018-07-31] MEDS ORDERED: Lactated Ringers 1000 ML Bag* 1,000 ML IV SCH (12:00)
--- NOTE | 2018-07-31 15:31 | ECHO ---
*[facility]* [place] [address] Fax #: [phone] Transthoracic Echocardiogram Patient: José, Height: 63 in / 160 Aida Stark cm : 1955 Weight: 155.7 lb / Study Date: 07/31/2018 70.8 kg Age: 62 BP: 86 / 50 Gender: F BMI/BSA: 27.6 kg/m^2 HR: 68 bpm / 1.74 m^2 *[employer] Operator: * Frances Pickett [facility] *Referring Physician: * Tasneem Martinez *Reading Physician: * Darian Winkler MD Indications: Peripheral Embolism. Ischemic colitis. History: Risk factors: Nonsmoker. Conclusions Summary: 1. Left ventricle: Systolic function is normal. The estimated ejection fraction is 55-60%. 2. Mitral valve: There is mild regurgitation. 3. Tricuspid valve: There is mild regurgitation. Recommendations: Consider a Transesophageal echocardiogram in order to exclude intracardiac thrombus if there is a high suspicion for a cardiac source of embolism. Study data: Transthoracic echocardiogram. Procedure: Transthoracic echocardiography was performed. Image quality was good. Complete 2D, spectral Doppler, and color flow Doppler. Location: Bedside. Patient status: Inpatient. Patient room number: 413-2. No prior study is available for comparison. Rhythm: Normal sinus rhythm. Findings Left ventricle: The cavity size is normal. Wall thickness is normal. Systolic function is normal. The estimated ejection fraction is 55-60%. Wall motion is normal; there are no regional wall motion abnormalities. Left ventricular diastolic function parameters are normal. Right ventricle: The cavity size is normal. Systolic function is normal. Systolic pressure is at the upper limits of normal. Left atrium: The atrium is at the upper limits of normal in size. Right atrium: The atrium is normal in size. Mitral valve: The leaflets are mildly thickened. There is no evidence of stenosis. There is mild regurgitation. Aortic valve: The valve is trileaflet. The leaflets are mildly thickened. There is no evidence of stenosis. There is trace regurgitation. Tricuspid valve: The leaflets are normal thickness. There is no evidence of stenosis. There is mild regurgitation. Pulmonic valve: The leaflets are normal thickness. There is no evidence of stenosis. There is trivial regurgitation. Aorta: Ascending aorta: The ascending aorta is appears normal. Aortic arch: The aortic arch is appears normal. The aortic root is not dilated. Pericardium: There is no significant pericardial effusion. Pulmonary arteries: The main pulmonary artery is normal-sized. Systemic veins: Inferior vena cava: The vessel is normal in size. The respirophasic diameter changes are blunted (< 50%). Measurements Left ventricle Value Ref Aortic valve Value Ref KAYLI, LAX 4.6 cm 3.8 - 5.2 Shahnaz diam, ED 1.8 cm ----- ESD, LAX 3.4 cm 2.2 - 3.5 Peak v, S 1.19 m/sec ----- FS, LAX (L) 26 % 27 - 45 VTI, S 21.6 cm ----- PW, ED, LAX (H) 1.0 cm 0.6 - 0.9 Mean grad, S 3.0 mm Hg ----- FS (L) 26 % 27 - 45 Peak grad, S 6.0 mm Hg ----- PW, ED (H) 1.0 cm 0.6 - 0.9 LVOT/AV, VTI ratio 0.88 ----- E', lat shahnaz, TDI 10.8 cm/sec >=10.0 E/e', lat shahnaz, 8 Mitral valve Value Ref TDI Peak E 0.85 m/sec ----- E', med shahnaz, TDI 8.2 cm/sec >=7.0 Peak A 0.51 m/sec --- -- E/e', med shahnaz, 10 Decel time 190 ms ----- TDI Peak grad, D 2.9 mm Hg ----- E', avg, TDI 9.5 cm/sec Peak E/A ratio 1.7 ----- E/e', avg, TDI 9 <=14 Pulmonic valve Value Ref LVOT Value Ref Peak v, S 0.64 m/sec ----- Peak karen, S 0.92 m/sec Peak grad, S 2.0 mm Hg ----- VTI, S 19.0 cm Mean grad, S 2 mm Hg Tricuspid valve Value Ref TR peak v 2.5 m/sec <=2.8 Ventricular septum Value Ref Peak RV-RA grad, S 25 mm Hg ----- IVS, ED 0.8 cm 0.6 - 0.9 Aortic root Value Ref Right ventricle Value Ref Root diam 3.4 cm <3.9 KAYLI, LAX 2.8 cm KAYLI minor ax, A4C (H) 3.9 cm 1.9 - 3.5 Ascending aorta Value Ref mid AAo AP diam, S 2.8 cm ----- Pressure, S 33 mm Hg Aortic arch Value Ref Left atrium Value Ref Arch diam 2.0 cm ----- AP dim, ES 3.60 cm 2.70 - 3.80 Decending aorta Value Ref ML dim, A4C 3.9 cm Lonnie peak karen 0.64 m/sec ----- SI dim, A4C 5.0 cm Vol/bsa, ES, 1-p 22 ml/m^2 11 - 40 Pulmonary artery Value Ref A4C Pressure, S 31.0 mm Hg ----- Vol/bsa, ES, A/L 31 ml/m^2 16 - 34 Inferior vena cava Value Ref Right atrium Value Ref Diam 2.0 cm ----- SI dim, ES 4.2 cm 3.4 - 5.3 ML dim, ES, A4C 3.9 cm 2.6 - 4.4 SI dim, ES, A4C 4.2 cm 3.4 - 5.3 Estimated RAP 8 mm Hg Legend: (L) and (H) kit values outside specified reference range. Prepared and electronically signed by Darian Winkler MD 07/31/2018 15:30
--- NOTE | 2018-07-31 17:39 | PN ---
Progress Note - Progress Note Date of Service: 07/31/18 Note: Surgery Progress: S: Dr. Valverde's consult and procedure note reviewed as well as Echo. Pt states she is having less pain. Still having loose stool; no blood. Some nausea this a.m.; better now. Would like to drink H2O. BPs were low earlier in the day, but seemed to respond to IVF bolus. No lightheadedness. O: Vital Signs - 8 hr 07/31/18 07/31/18 11:00 15:32 Temperature 98.3 F 98.5 F Pulse Rate 66 65 Respiratory 16 20 Rate Blood Pressure 89/53 93/47 (mmHg) O2 Sat by Pulse 96 95 Oximetry Intake and Output Last 24 Hours 07/29/18 07/30/18 07/31/18 08/01/18 06:59 06:59 06:59 06:59 Intake Total 4108 6064 135 Output Total 600 950 400 Balance 3508 5114 -265 Weight 156 lb Intake: IV Fluids 3628 5154 25 ABX - CIPROFLOXACIN 200 ABX - FLAGYL 100 D5W 1/2 NS 20 meq KCL 670 LR 658 4854 NS 25 IVPB 400 430 110 ABX - CIPROFLOXACIN 200 210 ABX - FLAGYL 200 220 110 Oral 80 480 0 Output: Urine 600 950 400 Other: Estimated Void Medium # Bowel Movements 1 # Voids 1 2 Sig I>O as noted. She feels bloated/distended; hands puffy. Gen: appears comfortable; NAD Heart: reg Lungs: clear ant; dec BS R base Abd: sl distended; few BS. Soft; min tenderness, only elicited in the mid-abd; remainder non-tender. Labs: Laboratory Tests 07/30/18 07/31/18 07/31/18 05:47 05:28 05:28 WBC 17.0 H 10.0 Hgb 10.0 L 9.6 L Potassium 3.2 L [address] from colonoscopy bx pend Echo: normal (see report) A: prob ischemic colitis; ? etiology; improving P: cont bowel rest, though if she cont to improve, could consider clears in a.m. Will d/w Dr. Huang. At this point, no plans for acute surgical intervention. Discussed w/ pt and her daughter.
[2018-07-31] MEDS ORDERED: KCL 20 MEQ/100 ML IVPREMIX* 20 MEQ/100 ML BAG IV SCH (18:00)
[2018-07-31] MEDS: Magnesium Sulfate 2 GM IV* 2 GM/50 ML BAG IVPB ONE ×2 (18:10→19:22)
[2018-07-31] MEDS: Enoxaparin(*) 40 MG/0.4 ML SYR SUBCUT SCH (21:17)
[2018-08-01] MEDS: metroNIDAZOLE IV 500 MG/100ML* 500 MG/100 ML BAG IVPB SCH ×3 (02:35→18:37)
[2018-08-01] MEDS: Cyclobenzaprine TAB* 10 MG PO PRN (02:45)
[2018-08-01] MEDS: Lactated Ringers 1000 ML Bag* 1,000 ML IV SCH ×3 (05:27→22:50)
[2018-08-01] MEDS: Levothyroxine TAB* 75 MCG TAB PO SCH (05:27)
[2018-08-01] MEDS: Acetaminophen TAB* 325 MG PO PRN (05:59)
[2018-08-01 06:26] LABS: Hematocrit 32 % (35-47); Hemoglobin 10.7 g/dL (12.0-16.0); Mean Corpuscular HGB Conc 34 g/dL (31-36); Mean Corpuscular Hemoglobin 31 pg (27-31); Mean Corpuscular Volume 92 fL (80-97); Mean Platelet Volume 7.6 fL (7.4-10.4); Platelet Count 249 10^3/uL (150-450); Red Blood Count 3.45 10^6 /uL (3.70-4.87); Red Cell Distribution Width 13 % (10-15); White Blood Count 7.3 10^3/uL (3.5-10.8)
[2018-08-01 06:47] LABS: BUN/Creatinine Ratio 9.3 (8-20); Calcium 8.1 mg/dL (8.6-10.3); EGFR African American 138.4 (>60); EGFR Non-African American 114.4 (>60); Magnesium 1.9 mg/dL (1.9-2.7); Potassium 3.5 mmol/L (3.5-5.0)
[2018-08-01 08:34] LABS: ABS Eosinophils 0.1 10^3/ul (0-0.6); ABS Lymphocytes 1.2 10^3/ul (1.0-4.8); ABS Monocytes 0.6 10^3/ul (0-0.8); ABS Neutrophils 5.5 10^3/ul (1.5-7.7); Eosinophil % 1.2 %; Lymphocyte % 15.9 %
[2018-08-01] MEDS ORDERED: Lactated Ringers 1000 ML Bag* 1,000 ML IV SCH (10:31)
[2018-08-01] MEDS: Ciprofloxacin 400MG IVPREMIX(* 400 MG/200 ML BAG IVPB SCH ×2 (11:05→21:18)
--- NOTE | 2018-08-01 16:06 | PN ---
Subjective Date of Service: 08/01/18 Interval History: Nurse reports patient feels "puffy" and "tight" possibly from IVF. Reports she feels these symptoms lying down, but improves when she stands and walks around. Reports abd has improved and rates pain at "0" currently. Reports she has had several 3 to 5 bowel movements today that were diarrhea. Denies nausea. Denies cp, palpitations, sob, fever, chills. Objective Active Medications: Acetaminophen (Tylenol Tab*) 975 mg PO Q6H PRN PRN Reason: FEVER/PAIN Last Admin: 08/01/18 05:59 Dose: 975 mg Cyclobenzaprine HCl (Flexeril Tab*) 5 mg PO BID PRN PRN Reason: MUSCLE SPASMS Last Admin: 08/01/18 02:45 Dose: 5 mg Enoxaparin Sodium (Lovenox(*)) 40 mg SUBCUT BEDTIME PERRI Last Admin: 07/31/18 21:17 Dose: 40 mg Ciprofloxacin/Dextrose (Cipro 400 Mg Ivpremix(*)) 400 mg in 200 mls @ 200 mls/ hr IVPB Q12H [facility]; Protocol Last Admin: 08/01/18 11:05 Dose: 200 mls/hr Metronidazole/Sodium Chloride (Flagyl 500 Mg Ivpb*) 500 mg in 100 mls @ 100 mls /hr IVPB Q8H PER[facility] Last Admin: 08/01/18 09:56 Dose: 100 mls/hr Lactated Ringer's (Lactated Ringers 1000 Ml Bag*) 1,000 mls @ 100 mls/hr IV PER RATE [facility] Levothyroxine Sodium (Synthroid Tab*) 75 mcg PO 0600 [facility] Last Admin: 08/01/18 05:27 Dose: 75 mcg Morphine Sulfate (Morphine Inj (Syringe))*) 2 mg IV Q4H PRN PRN Reason: PAIN - MILD Last Admin: 07/30/18 21:39 Dose: 2 mg Ondansetron HCl (Zofran Inj*) 4 mg IV Q6H PRN PRN Reason: NAUSEA Last Admin: 07/31/18 22:42 Dose: 4 mg Vital Signs - 8 hr 08/01/18 08/01/18 08:13 11:37 Temperature 98.4 F Pulse Rate 62 58 Blood Pressure 108/53 (mmHg) O2 Sat by Pulse 97 Oximetry Oxygen Devices in Use Now: None Appearance: Comfortable, NAD Eyes: No Scleral Icterus Ears/Nose/Mouth/Throat: Clear Oropharnyx, Mucous Membranes Moist Neck: NL Appearance and Movements; NL JVP Respiratory: Symmetrical Chest Expansion and Respiratory Effort, Clear to Auscultation Cardiovascular: NL Sounds; No Murmurs; No JVD, RRR, No Edema Abdominal: NL Sounds; No Tenderness; No Distention Lymphatic: No Cervical Adenopathy Extremities: No Clubbing, Cyanosis Skin: No Rash or Ulcers Neurological: Alert and Oriented x 3 Nutrition: Taking PO's Result Diagrams: 08/01/18 06:05 08/01/18 06:05 Additional Lab and Data: Laboratory Results - last 24 hr 07/31/18 07/31/18 05:28 05:28 WBC 10.0 RBC 3.05 L Hgb 9.6 L Hct 28 L MCV 92 MCH 32 H MCHC 35 RDW 14 Plt Count 194 MPV 7.8 Neut % (Auto) 86.8 Lymph % (Auto) 7.3 [place] % (Auto) 5.2 Eos % (Auto) 0.5 Baso % (Auto) 0.2 Absolute Neuts (auto) 8.7 H Absolute Lymphs (auto) 0.7 L Absolute Monos (auto) 0.5 Absolute Eos (auto) 0.1 Absolute Basos (auto) 0.0 Absolute Nucleated RBC 0.0 Nucleated RBC % 0.0 Sodium 139 Potassium 3.2 L Chloride 108 Carbon Dioxide 27 Anion Gap 4 BUN 7 Creatinine 0.55 Est GFR ( Amer) 135.5 Est GFR (Non-Af Amer) 112.0 BUN/Creatinine Ratio 12.7 Glucose 92 Calcium 8.0 L Magnesium 1.7 L Lactate Dehydrogenase 118 L Microbiology and Other Data: Microbiology 07/29/18 21:01 Stool Cryptosporidium/Giardia - Final Neg Cryptosporidium/Giardia 07/29/18 18:32 Stool Escherichia coli 0157 Culture - Final 07/29/18 18:32 Stool Stool Culture - Final 07/29/18 18:32 Stool Stool Gross Appearance - Final 07/29/18 18:32 Stool Shiga Toxin I & II - Final 07/29/18 18:32 Stool Stool Occult Blood (MIKHAIL) - Final 07/29/18 07:55 Urine Urine Culture - Final No Growth (<1,000 CFU/mL) 07/29/18 18:32 Stool Stool Gross Appearance - Final 07/29/18 18:32 Stool C. difficile DNA Amplification - Final 027 Presumptive NEGATIVE Toxigenic C.diff NEGATIVE Assess/Plan/Problems-Billing Assessment: 62 yr old with pmh of hypothyroid and lyme disease who presented to ED with abd pain and bloody stool - Patient Problems (1) Abdominal pain Comment: - Improved, therefore, diet advanced to clears. If tolerates will advance to soft. - No pain or tenderness on palpation. (2) Colitis Comment: - Acute ischemic colitis - Biopsy from scope confirms ischemic colitis - Advanced to clears - Cont IVF, but at lower rate given she is taking clears and BP improvin - Cont IV pain medication prn - Cont abx. Patient will need 7 to 10 days total. (3) Diarrhea Comment: - 3 to 5 BM of diarrhea today. Previously only one a day - Negative C Diff - Culture negative - Positive for blood (4) Sepsis Comment: - Sepsis ruled out. (5) Leukocytosis Comment: - Now wnl - No fevers noted - Cont Cipro and Flagyl for 7 to 10 days (6) Hypotension Comment: - Systolic above 100 today. - Hypotensive during hospital stay. - Suspected to be secondary to pain medication and dehydration. - Asymptomatic - Cont IVF - Cont to monitor (7) Breast mass Comment: - Incidental 2.7 cm nodular density in right breast noted on CT - Will need follow up mammogram as outpatient (8) Hypothyroid Comment: - TSH normal - Cont Levothyroxine as same dose (9) DVT prophylaxis Comment: - Lovenox daily Status and Disposition: Inpatient. Discharge home when medically stable Attending: Lazaro Taylor
[2018-08-01] MEDS ORDERED: Gadobenate* (CONTRAST) 529 MG/ML 10 ML SDV IV ONE (20:50)
[2018-08-01] MEDS: Enoxaparin(*) 40 MG/0.4 ML SYR SUBCUT SCH (21:18)
[2018-08-01] MEDS ORDERED: Zolpidem TAB* 10 MG PO ONE (23:30)
[2018-08-02] MEDS: metroNIDAZOLE IV 500 MG/100ML* 500 MG/100 ML BAG IVPB SCH ×2 (02:53→09:27)
[2018-08-02] MEDS: Acetaminophen TAB* 325 MG PO PRN (05:46)
[2018-08-02] MEDS: Levothyroxine TAB* 75 MCG TAB PO SCH (05:46)
[2018-08-02] MEDS: Lactated Ringers 1000 ML Bag* 1,000 ML IV SCH (09:27)
[2018-08-02] MEDS: Ciprofloxacin 400MG IVPREMIX(* 400 MG/200 ML BAG IVPB SCH (10:38)
[2018-08-02 18:14] VITALS: BP 107/53
--- NOTE | 2018-08-02 21:07 | DS ---
AMENDED REPORT NOW INCLUDES DESIGNATED COSIGNER CC: Dr. Hair Owusu * DISCHARGE SUMMARY: DATE OF ADMISSION: 07/29/18 DATE OF DISCHARGE: 08/02/18 PRIMARY CARE PROVIDER: Dr. Hair Owusu ATTENDING PHYSICIAN: Dr. Lazaro Taylor * (dictated by Meri Bray NP) PRIMARY DIAGNOSES: 1. Ischemic colitis. 2. Breast mass. 3. Acute kidney injury. 4. Severe sepsis. SECONDARY DIAGNOSIS: 1. Hypothyroidism. STUDIES WHILE IN THE HOSPITAL: 1. Abdomen and pelvis CT on 07/29/18 reads as circumferential thickening of the wall of the transverse colon, most consistent with colitis. There is an outpouching along the superior wall suggestive of an ulcerative diverticulum. Recommend followup colonoscopy to exclude underlying malignant lesion. Small amount of free intraperitoneal fluid. A 2.7 cm nodular density in the right breast. Recommend followup mammogram for further evaluation. 2. Transthoracic echocardiogram on 07/31/18 reads as the left ventricular systolic pressure is normal. The estimated ejection fraction is 55% to 60%. There is mild mitral regurgitation. There is mild tricuspid regurgitation. 3. Pelvis MRI on 08/01/18 reads as no significant vascular stenosis is demonstrated. CONSULTATIONS WHILE IN THE HOSPITAL: 1. Dr. Landen Huang with Surgery on 07/29/18. 2. Dr. Krishna Valverde with Gastroenterology on 07/31/18. PROCEDURES WHILE IN THE HOSPITAL: 1. Sigmoidoscopy on 07/29/[address] Valverde. HISTORY OF PRESENT ILLNESS AND HOSPITAL COURSE: Ms. Kumar is a 62-year-old female with a past medical history of hypothyroidism, who presented to the emergency room on 07/29/18 with complaints of left lower quadrant pain. Please see the history and physical by Dr. Curtis for complete summary of the events leading up to this hospitalization. In short, the patient reported 1 day of severe left lower quadrant pain. She had associated bloody diarrhea and chills and presented to the emergency room because of these symptoms. In the emergency room, the patient was noted to have leukocytosis with a white blood cell count of 26.3 and elevated creatinine of 1.02. She was initially noted to have an elevated lactic acid of 3.1 and elevated CRP of 341. Because of these symptoms of colitis, she was admitted by the hospitalist service. The patient was seen in consultation by Dr. Huang from Surgery who recommended nonoperative treatment with IV fluids, n.p.o. status and antibiotics. The patient was started on IV ciprofloxacin and Flagyl. She additionally was seen by Dr. Valverde from Gastroenterology who felt she would benefit from the sigmoidoscopy. The patient did undergo a sigmoidoscopy on 07/30/18 and these findings were minimal diverticulosis and focal colitis of the transverse colon. Because of the concern for vascular disease, the patient had an echo and a pelvis MRI that were unremarkable. Biopsies from the sigmoidoscopy revealed ischemic colitis with fibrinous exudate. The patient's symptoms continued to improve and as of yesterday, 08/01/18, she was able to tolerate a clear diet and this morning, the patient was feeling well and was requesting more substantial food, so I did advance her to a soft diet which she tolerated well. The patient denies any abdominal pain, nausea, vomiting, or bloody stool. She does report occasional small bouts of diarrhea. I will note that she was noted to have a negative C. diff and cryptosporidium and giardia. The patient was feeling well and was anxious to return home. On exam, she has no focal neurological deficits. Her heart has a regular rate and rhythm without murmurs , rubs, or gallops. Her lungs are clear to auscultation without rhonchi, wheezes, or rubs. Bowel sounds are normoactive throughout. The abdomen is soft and nontender throughout to light and deep palpation. Ms. Kumar is stable for discharge today. Vital signs are as follows: Temp 97.9, heart rate 64, respiratory rate 16, oxygen saturation 96% on room air, blood pressure 99/51. DISCHARGE MEDICATIONS: New medications: 1. Ciprofloxacin 500 mg p.o. b.i.d. x5 days. 2. Metronidazole 500 mg p.o. t.i.d. x5 days. Continued medications: 1. Levothyroxine 75 mcg p.o. daily. 2. Tizanidine 4 mg p.o. daily p.r.n. 3. Ambien 10 mg p.o. at bedtime. DISCHARGE PLAN: Ms. Kumar will be discharged home. Activity will be as tolerated. Diet will be regular as tolerated though she should use caution with advancing her diet. Medications are noted above. The patient will need to complete another 5 days of Cipro and Flagyl to complete a total of 10 days of antibiotic therapy for her colitis. She can continue her other usual medications as noted above and I have not made any further changes. I have provided the patient with a note indicating she was hospitalized as she had a flight booked for early next week to go on vacation and I have advised her against travel at this time. She will need to see her primary care provider in 4 to 7 days. She has been instructed to return to the hospital or nearest emergency room for any worsening of symptoms, shortness of breath, lightheadedness, dizziness, chest discomfort, high fever, chills, night sweats, loss of consciousness, or any other worrisome signs or symptoms. DISCHARGE CONDITION: Stable. DISCHARGE DISPOSITION: Home. This is a summarized report of a complex medical history and hospital stay. For further details, please see the entire medical record. TIME SPENT: Approximately 45 minutes was spent on this discharge. MERI BRAY NP [id number]/CPS #: [id number] ROHAN
== END 2018-08-02 17:20 | disposition home or self-care (01) | DRG 871 ==
LOC: ED 07:07 → MED 13:11
PROVIDERS: ADMIT Internal Medicine; ATTEND Internal Medicine
PROC: 0DBL8ZX Excision of Transverse Colon, Via Natural or Artificial Opening Endoscopic, Diagnostic (ICD-10-PCS; principal; 2018-07-30)
DX: A41.9 Sepsis, unspecified organism (principal); K55.031 Focal (segmental) acute (reversible) ischemia of large intestine; N17.9 Acute kidney failure, unspecified; E03.9 Hypothyroidism, unspecified; R65.20 Severe sepsis without septic shock; G47.30 Sleep apnea, unspecified; K21.9 Gastro-esophageal reflux disease without esophagitis; M19.90 Unspecified osteoarthritis, unspecified site; K57.50 Diverticulosis of both small and large intestine without perforation or abscess without bleeding; N63.0 Unspecified lump in unspecified breast; G89.29 Other chronic pain; M54.2 Cervicalgia; E87.6 Hypokalemia; E83.42 Hypomagnesemia; I95.9 Hypotension, unspecified; Z98.1 Arthrodesis status; Z98.51 Tubal ligation status; Z72.89 Other problems related to lifestyle; Z87.891 Personal history of nicotine dependence; Z80.0 Family history of malignant neoplasm of digestive organs
CPT/HCPCS: 36415; 72198; 74177; 74185; 80048; 80053; 81003; 81015; 82272; 83605; 83615; 83690; 83735; 84443; 85025; 85610; 86140; 87045; 87046; 87086; 87177; 87209; 87328; 87329; 87493; 87899; 88305; 93306; 99156; 99157; 99284; A9270-GY; A9577; C8902; C8920; J0744; J1650; J2250; J2270; J2405; J3010; J3475; J3480; J3490; Q9967